=== PATIENT | male | born 1975 | race Caucasian/White ===

== ENCOUNTER 2017-10-21 10:34 | Emergency (ER) | payer MEDICAID ==
[2017-10-21] MEDS ORDERED: MVI, Adult with Vitamin K 10 ML, Thiamine 100 MG, Folic Acid 1 MG, Magnesium Sulfate 2 ... IV ONE ×10 (12:48→14:00)
[2017-10-21] MEDS ORDERED: Sodium Chloride 0.9% 10 ML Syringe FLUSH PRN (12:48)
[2017-10-21] MEDS ORDERED: Ondansetron 4 MG Tab.DIS PO PRN (12:48)
--- NOTE | 2017-10-21 12:51 | EDM.PDOC ---
ED HPI GENERAL MEDICAL PROBLEM - General Chief Complaint: Drug or Alcohol Abuse Stated Complaint: EVAL Time Seen by Provider: 10/21/17 12:48 Source of Information: Reports: Patient History Limitations: Reports: No Limitations - History of Present Illness INITIAL COMMENTS - FREE TEXT/NARRATIVE: Got out of [facility] on Tuesday; walked for several miles and then started drinking again. Has been in and out of treatment several times since he was a young miguel. Had a seizure 2 weeks ago; his father that day; due to alcohol abuse; mother and sibling are also alcoholics. Last drink this morning. Denies any drug use (this time) Denies being suicidal or homicidal. Onset: Gradual Severity: Moderate - Related Data Allergies Allergy/AdvReac Type Severity Reaction Status Date / Time latex Allergy Rash Verified 10/21/17 12:48 Home Meds: Home Meds Brexpiprazole [Rexulti] 1 tab PO DAILY 10/21/17 [History] DULoxetine [Cymbalta] 1 tab PO DAILY 10/21/17 [History] Dexmethylphenidate HCl [Focalin Xr] 1 tab PO DAILY 10/21/17 [History] Fluticasone Furoate [Arnuity Ellipta] 1 spray ANA BID 10/21/17 [History] Metoprolol Succinate [Toprol XL 50mg] 1 tab PO DAILY 10/21/17 [History] Multivit with Calcium,Iron,Min [Essential Daily] 1 tab PO DAILY 10/21/17 [ History] Mupirocin Cream [Bactroban Crm] 1 applic TOP DAILY 10/21/17 [History] Nicotine Polacrilex [Nicorelief] 1 piece PO Q4H 10/21/17 [History] Omeprazole 1 tab PO DAILY 10/21/17 [History] QUEtiapine [SEROquel] 3 tab PO BEDTIME 10/21/17 [History] Testosterone Cypionate [Depo-Testosterone] 1 ml IM ASDIRECTED 10/21/17 [History] atorvaSTATin [Lipitor] 1 tab PO BEDTIME 10/21/17 [History] cloNIDine [Catapres] 1 tab PO BID PRN 10/21/17 [History] clonazePAM [Klonopin] 1 tab PO BID PRN 10/21/17 [History] diphenhydrAMINE [Benadryl] 50 mg PO DAILY 10/21/17 [History] ED ROS GENERAL - Review of Systems Review Of Systems: See Below Constitutional: Reports: No Symptoms HEENT: Reports: No Symptoms Respiratory: Reports: No Symptoms Cardiovascular: Reports: No Symptoms GI/Abdominal: Reports: No Symptoms : Reports: No Symptoms Musculoskeletal: Reports: Other (right foot pain (broken and in boot)) Skin: Reports: No Symptoms Neurological: Reports: No Symptoms Psychiatric: Reports: No Symptoms ED EXAM, GENERAL - Physical Exam Exam: See Below Exam Limited By: No Limitations General Appearance: Alert, WD/WN, No Apparent Distress Eye Exam: Bilateral Eye: EOMI, PERRL Nose: Normal Inspection Throat/Mouth: Normal Inspection, Normal Oropharynx Head: Atraumatic, Normocephalic Neck: Normal Inspection, Supple, Non-Tender, Full Range of Motion Respiratory/Chest: No Respiratory Distress, Lungs Clear, Normal Breath Sounds, No Accessory Muscle Use, Chest Non-Tender Cardiovascular: Normal Peripheral Pulses, Regular Rate, Rhythm GI/Abdominal: Normal Bowel Sounds Back Exam: Normal Inspection, Full Range of Motion Extremities: Normal Inspection, Normal Range of Motion, Non-Tender Neurological: Alert, Oriented, CN II-XII Intact Psychiatric: Normal Affect, Normal Mood Skin Exam: Warm, Dry, Intact Course - Vital Signs Last Recorded V/S: Last Vital Signs Temp 96.6 F 10/21/17 13:27 Pulse 100 10/21/17 13:27 Resp 16 10/21/17 13:27 BP 135/77 10/21/17 13:27 Pulse Ox 94 L 10/21/17 13:27 - Orders/Labs/Meds Orders: Active Orders 24 hr Category Date Time Status Peripheral IV Care [RC] . DIRECTED Care 10/21/17 12:50 Active Up With Assistance [RC] ASDIRECTED Care 10/21/17 12:48 Active DRUG SCREEN, URINE [URCHEM] Stat Lab 10/21/17 14:33 Ordered UA W/MICROSCOPIC [URIN] Stat Lab 10/21/17 14:33 Ordered Peripheral IV Insertion Adult [OM.PC] Urgent Oth 10/21/17 12:48 Ordered Labs: Laboratory Tests 10/21/17 10/21/17 10/21/17 Range/Units 12:58 12:58 12:58 WBC 8.2 (4.5-11.0) K/uL RBC 5.25 (4.30-5.90) M/uL Hgb 16.0 H (12.0-15.0) g/dL Hct 47.7 (40.0-54.0) % MCV 91 (80-98) fL MCH 31 (27-31) pg MCHC 34 (32-36) % Plt Count 185 (150-400) K/uL Neut % (Auto) 63 (36-66) % Lymph % (Auto) 22 L (24-44) % [place] % (Auto) 12 H (2-6) % Eos % (Auto) 3 (2-4) % Baso % (Auto) 1 (0-1) % Sodium 141 (140-148) mmol/L Potassium 4.0 (3.6-5.2) mmol/L Chloride 106 (100-108) mmol/L Carbon Dioxide 25 (21-32) mmol/L Anion Gap 9.8 (5.0-14.0) mmol/L BUN 10 (7-18) mg/dL Creatinine 1.2 (0.8-1.3) mg/dL Est Cr Clr Drug Dosing 81.96 mL/min Estimated GFR (MDRD) > 60 (>60) Glucose 102 (74-106) mg/dL Calcium 8.6 (8.5-10.1) mg/dL Total Bilirubin 0.3 (0.2-1.0) mg/dL AST 36 (15-37) U/L ALT 69 (12-78) U/L Alkaline Phosphatase 67 (46-116) U/L Total Protein 7.2 (6.4-8.2) g/dL Albumin 3.6 (3.4-5.0) g/dL Globulin 3.6 H (2.3-3.5) g/dL Albumin/Globulin Ratio 1.0 L (1.2-2.2) Urine Color Urine Appearance Urine pH (4.5-8.0) Ur Specific [place] (1.008-1.030) Urine Protein (NEGATIVE) mg/dL Urine Glucose (UA) (NEGATIVE) mg/dL Urine Ketones (NEGATIVE) mg/dL Urine Occult Blood (NEGATIVE) Urine Nitrite (NEGAITVE) Urine Bilirubin (NEGATIVE) Urine Urobilinogen (NORMAL) mg/dL Ur Leukocyte Esterase (NEGATIVE) Urine RBC (0-5) Urine WBC (0-5) Ur Epithelial Cells Amorphous Sediment Urine Bacteria Urine Mucus Salicylates 2.5 (2.0-20.0) mg/dL Urine Opiates Screen (NEGATIVE) Ur Oxycodone Screen (NEGATIVE) Urine Methadone Screen (NEGATIVE) Ur Propoxyphene Screen (NEGATIVE) Acetaminophen 0.0 L (10.0-30.0) ug/mL Ur Barbiturates Screen (NEGATIVE) Ur Tricyclics Screen (NEGATIVE) Ur Phencyclidine Scrn (NEGATIVE) Ur Amphetamine Screen (NEGATIVE) U Methamphetamines Scrn (NEGATIVE) Urine MDMA Screen (NEGATIVE) U Benzodiazepines Scrn (NEGATIVE) U Cocaine Metab Screen (NEGATIVE) U Marijuana (THC) Screen (NEGATIVE) Ethyl Alcohol mg/dL 10/21/17 10/21/17 10/21/17 Range/Units 12:58 14:33 14:33 WBC (4.5-11.0) K/uL RBC (4.30-5.90) M/uL Hgb (12.0-15.0) g/dL Hct (40.0-54.0) % MCV (80-98) fL MCH (27-31) pg MCHC (32-36) % Plt Count (150-400) K/uL Neut % (Auto) (36-66) % Lymph % (Auto) (24-44) % [place] % (Auto) (2-6) % Eos % (Auto) (2-4) % Baso % (Auto) (0-1) % Sodium (140-148) mmol/L Potassium (3.6-5.2) mmol/L Chloride (100-108) mmol/L Carbon Dioxide (21-32) mmol/L Anion Gap (5.0-14.0) mmol/L BUN (7-18) mg/dL Creatinine (0.8-1.3) mg/dL Est Cr Clr Drug Dosing mL/min Estimated GFR (MDRD) (>60) Glucose (74-106) mg/dL Calcium (8.5-10.1) mg/dL Total Bilirubin (0.2-1.0) mg/dL AST (15-37) U/L ALT (12-78) U/L Alkaline Phosphatase (46-116) U/L Total Protein (6.4-8.2) g/dL Albumin (3.4-5.0) g/dL Globulin (2.3-3.5) g/dL Albumin/Globulin Ratio (1.2-2.2) Urine Color Yellow Urine Appearance Clear Urine pH 6.0 (4.5-8.0) Ur Specific [place] 1.015 (1.008-1.030) Urine Protein Negative (NEGATIVE) mg/dL Urine Glucose (UA) Normal (NEGATIVE) mg/dL Urine Ketones Negative (NEGATIVE) mg/dL Urine Occult Blood Negative (NEGATIVE) Urine Nitrite Negative (NEGAITVE) Urine Bilirubin Negative (NEGATIVE) Urine Urobilinogen Normal (NORMAL) mg/dL Ur Leukocyte Esterase Negative (NEGATIVE) Urine RBC Not seen (0-5) Urine WBC Not seen (0-5) Ur Epithelial Cells Rare Amorphous Sediment Not seen Urine Bacteria Not seen Urine Mucus Not seen Salicylates (2.0-20.0) mg/dL Urine Opiates Screen Negative (NEGATIVE) Ur Oxycodone Screen Negative (NEGATIVE) Urine Methadone Screen Negative (NEGATIVE) Ur Propoxyphene Screen Negative (NEGATIVE) Acetaminophen (10.0-30.0) ug/mL Ur Barbiturates Screen Negative (NEGATIVE) Ur Tricyclics Screen Negative (NEGATIVE) Ur Phencyclidine Scrn Negative (NEGATIVE) Ur Amphetamine Screen Negative (NEGATIVE) U Methamphetamines Scrn Negative (NEGATIVE) Urine MDMA Screen Negative (NEGATIVE) U Benzodiazepines Scrn Presumptive positive H (NEGATIVE) U Cocaine Metab Screen Negative (NEGATIVE) U Marijuana (THC) Screen Negative (NEGATIVE) Ethyl Alcohol 107 mg/dL Meds: Medications Discontinued Medications Generic Name Dose Route Start Last Admin Trade Name Freq PRN Reason Stop Dose Admin Sodium Chloride 1,000 mls @ 500 mls/hr 10/21/17 13:00 Normal Saline IV .BOLUS BRISA Multivitamins/Minerals 10 ml/ 1,015.2 mls @ 500 mls/hr 10/21/17 14:00 13:56 Thiamine HCl 100 mg/ Folic IV 10/21/17 16:01 500 mls/hr Acid 1 mg/ Magnesium Sulfate 2 ONETIME ONE Administration gm/ Sodium Chloride Ondansetron HCl 4 mg 10/21/17 12:48 Zofran Odt PO ONETIME PRN Nausea/Vomiting Sodium Chloride 10 ml 10/21/17 12:48 Saline Flush FLUSH ASDIRECTED PRN Keep Vein Open - Re-Assessments/Exams Free Text/Narrative Re-Assessment/Exam: 10/21/17 15:05 labs are back; +benzos with uds etoh elevated Patient sitting at bedside; no complaints did eat without any problems. Departure - Departure Time of Disposition: 15:20 Disposition: DC/Tfer to Other 70 Condition: Fair Clinical Impression: Alcohol abuse - Discharge Information Instructions: Alcohol Abuse and Nutrition Referrals: PCP,None [Primary Care Provider] - Forms: ED Department Discharge - Problem List & Annotations (1) Alcohol abuse SNOMED Code(s): 23208705 Code(s): F10.10 - ALCOHOL ABUSE, UNCOMPLICATED Status: Acute Priority: Medium - Problem List Review Problem List Initiated/Reviewed/Updated: Yes - My Orders Last 24 Hours: My Active Orders 10/21/17 12:48 Up With Assistance [RC] ASDIRECTED Peripheral IV Insertion Adult [OM.PC] Urgent 10/21/17 12:50 Peripheral IV Care [RC] . DIRECTED 10/21/17 14:33 DRUG SCREEN, URINE [URCHEM] Stat UA W/MICROSCOPIC [URIN] Stat - Assessment/Plan Last 24 Hours: My Active Orders 10/21/17 12:48 Up With Assistance [RC] ASDIRECTED Peripheral IV Insertion Adult [OM.PC] Urgent 10/21/17 12:50 Peripheral IV Care [RC] . DIRECTED 10/21/17 14:33 DRUG SCREEN, URINE [URCHEM] Stat UA W/MICROSCOPIC [URIN] Stat
[2017-10-21] MEDS ORDERED: Sodium Chloride 0.9% 1,000 ML IV SCH (13:00)
== END 2017-10-21 15:29 | disposition other institution (70) ==
LOC: JP.ED 10:34
DX: F10.129 Alcohol abuse with intoxication, unspecified (principal); F19.120 Other psychoactive substance abuse with intoxication, uncomplicated; Y90.5 Blood alcohol level of 100-119 mg/100 ml; Z91.040 Latex allergy status; Z79.899 Other long term (current) drug therapy
CPT/HCPCS: 36415; 80053; 80305; 81001; 85025; 96365; 96366; 99285; G0480; J3411; J3475; J7030; J3490